=== PATIENT | male | born 1990 | race Caucasian/White ===

== ENCOUNTER 2023-06-30 10:49 | Emergency (ER) | payer BC, SELFPAY ==
[2023-06-30 11:06] VITALS: BP 141/81; PULSE 91; RESP 18; TEMP 36.6; O2SAT 96
--- NOTE | 2023-06-30 11:46 | ED.GENADULT ---
HPI - General Adult General Chief complaint: Ear Stated complaint: left ear pain Source: patient Mode of arrival: ambulatory Limitations: no limitations History of Present Illness HPI narrative: Patient presents for evaluation of left ear pain. Symptom onset yesterday. He has associated tinnitus and muffled hearing. He has had ear infections in the past. He states that his ears ?do not drain well?. He does use an electronic cigarette. No fever, chills, nausea, vomiting, sore throat. He tried taking 600 mg of ibuprofen without considerable improvement thereafter. Related Data Allergies Allergy/AdvReac Type Severity Reaction Status Date / Time No Known Allergies Allergy Unverified 06/10/15 17:10 Review of Systems Review of Systems: CONSTITUTIONAL: Denies fever, chills, or sweats. EYES: Denies visual changes, redness, or discharge. ENT: Reports left sided ear pain, muffled hearing and tinnitus Denies rhinorrhea, congestion, or sore throat CARDIOVASCULAR: Denies chest pain, palpitations, or edema. RESPIRATORY: Denies cough or dyspnea. GASTROINTESTINAL: Denies abdominal pain, nausea, vomiting, or diarrhea. GENITOURINARY: Denies dysuria or hematuria. SKIN: Denies rash or itching. MUSCULOSKELETAL: Denies back pain, joint pain, or myalgia. NEUROLOGIC: Denies headache, numbness, dizziness, or weakness. PSYCHIATRIC: Denies anxiety or depression. PMFSH Past Medical History Medical History Otitis media Surgical History Surgical History No pertinent past surgical history Family History Family History Mother Family history non-contributory Social History Social History Smoking status: Current every day smoker Tobacco type: e-cigarettes/vaping Living arrangements: with family Gender identity (if verbalized by the patient): Female Spiritual care concerns: No Exam Narrative: GENERAL: Well-appearing, well-nourished, and in no acute distress. HEAD: Normocephalic, atraumatic. EYES: PERRLA and EOMI. ENT: Nares clear, no rhinorrhea or epistaxis. Mucous membranes moist. Oropharynx without tonsillar hypertrophy exudate or other lesions. Unable to fully visualize left tympanic membrane due to swelling in the left ear canal and presence of white/yellow exudate. Canal is also erythematous. NECK: Supple. No adenopathy or masses. No carotid bruits or JVD CHEST: Clear to auscultation. No respiratory distress. No wheezes rales or rhonchi HEART: Regular rate and rhythm. No murmur heard. Normal peripheral pulses. ABDOMEN: Soft, nontender, nondistended, normal active bowel sounds. EXTREMITIES: Normal range of motion. No edema. SKIN: Warm, dry, no rash. NEURO: No focal deficits. Alert and oriented x3. PSYCH: Normal mood and affect. Course Course Emergency Course: This is a 33-year-old male who presented for evaluation of left-sided ear pain. Initially was not able to visualize the tympanic membrane due to swelling and exudate. Ear was irrigated and canal still appeared erythematous and edematous. The portion of the tympanic membrane occurred visualize was erythematous and bulging. I was not able to determine whether there was a perforation in the tympanic membrane due to lack of full visualization. Will discharge with Augmentin ofloxacin. Recommend smoking cessation. Follow up with primary provider. Go to the ER for worsening symptoms. Patient in agreement with plan of care Level of Care: Express Care Visit Vital Signs Vital signs: Vital Signs Temperature 36.6 C 06/30/23 11:06 Pulse Rate 91 06/30/23 11:06 Respiratory Rate 18 06/30/23 11:06 Blood Pressure 141/81 H 06/30/23 11:06 Pulse Oximetry 96 06/30/23 11:06 Oxygen Delivery Room Air 06/30/23
== END 2023-06-30 11:48 | disposition home or self-care (01) ==
PROVIDERS: Emergency Provider Nurse Practitioner; PCP Internal Medicine
DX: H60.92 Unspecified otitis externa, left ear (principal); H66.92 Otitis media, unspecified, left ear; F17.290 Nicotine dependence, other tobacco product, uncomplicated
CPT/HCPCS: 99213; G0463

== ENCOUNTER 2024-07-20 17:29 | Emergency (ER) | payer BC, SELFPAY ==
[2024-07-20 17:55] VITALS: BP 123/69; PULSE 80; RESP 16; TEMP 36.7; O2SAT 98
--- NOTE | 2024-07-20 19:06 | ED.WOUNDLAC ---
HPI - Wound/Laceration General Chief Complaint: Wound/Laceration Stated Complaint: Cat Bite/Left Index Finger Source: patient, RN notes reviewed and old records reviewed Mode of arrival: ambulatory Limitations: no limitations History of Present Illness HPI narrative: car bite mid aspect of left index finger Related Data Allergies Allergy/AdvReac Type Severity Reaction Status Date / Time No Known Allergies Allergy Unverified 07/20/24 19:01 Review of Systems Review of Systems: CONSTITUTIONAL: Denies fever, chills, or sweats. CARDIOVASCULAR: Denies chest pain, palpitations, or edema. RESPIRATORY: Denies cough or dyspnea. GASTROINTESTINAL: Denies abdominal pain, nausea, vomiting SKIN: Reports redness and swelling. Denies purulent drainage, vesicles, bullae, numbness, pain beyond proportion MUSCULOSKELETAL: Denies myalgia. NEUROLOGIC: Denies headache, numbness All systems reviewed & are unremarkable except as noted in HPI and below PMFSH Past Medical History Medical History Otitis media Surgical History Surgical History No pertinent past surgical history Family History Family History Mother Family history non-contributory Social History Social History Smoking status: Current every day smoker Tobacco type: e-cigarettes/vaping Living arrangements: with family Gender identity (if verbalized by the patient): Female Spiritual care concerns: No Comments At time of signature, agree with nursing past medical, surgical, social and family history. There is no relevant family history pertinent to the presenting complaint Exam Narrative: GENERAL: Well-appearing, well-nourished, and in no acute distress. HEAD: Normocephalic, atraumatic. EYES: PERRLA and EOMI. ENT: Nares clear, no rhinorrhea or epistaxis. Mucous membranes moist. NECK: Supple. CHEST: Clear to auscultation. No respiratory distress. HEART: Regular rate and rhythm. No murmur heard. Normal peripheral pulses. ABDOMEN: Soft, nontender, nondistended, normal active bowel sounds. EXTREMITIES: Normal range of motion. No edema. SKIN: Warm, dry. Erythema, induration, tenderness, warmth with sharp margins noted (XX). No vesicles, bullae, necrosis, ecchymosis, crepitus noted NEURO: No focal deficits. Alert and oriented x3. Course Course Emergency Course: Patient is aware of diagnosis, understands and agrees to treatment plan. Anticipatory guidance given. Patient agrees to follow-up as directed and is aware of reasons to seek care at the emergency department. Portions of this record may have been created with voice recognition software Level of Care: Express Care Visit Vital Signs Vital signs: Vital Signs Temperature 36.7 C 07/20/24 17:55 Pulse Rate 80 07/20/24 17:55 Respiratory Rate 16 07/20/24 17:55 Blood Pressure 123/69 07/20/24 17:55 Pulse Oximetry 98 07/20/24 17:55 Oxygen Delivery Room Air 07/20/24 17:55 Temperature 36.7 C 07/20/24 17:55 Pulse Rate 80 07/20/24 17:55 Respiratory Rate 16 07/20/24 17:55 Blood Pressure 123/69 07/20/24 17:55 Pulse Oximetry 98 07/20/24 17:55 Oxygen Delivery Room Air 07/20/24 17:55 Reviewed Discharge Plan Discharge Clinical Impression: Cat bite of finger Qualifiers: Encounter type: initial encounter Qualified Code(s): S61.259A - Open bite of unspecified finger without damage to nail, initial encounter Patient Disposition: Home, Self-Care Condition: Stable Instructions: Antibiotic Form Additional Instructions: Cleanse left index finger with liquid Dial soap twice daily apply mupirocin ointment and a Band-Aid to cover wound watch for increasing infection--redness, swelling, drainage Tylenol or ibuprofen for any fever pain follow up with PCP in 7-10 days for a wound check recheck if develop fever, chills, increasing symptom Go to the ER if your symptoms become worse of if ANY new symptoms develop Antibiotic as prescribed complete all doses Monitor for fevers If your symptoms persist, change or worsen significantly before you can contact your personal physician then please, without delay, go to the emergency department for further evaluation. Follow-up with PCP in 7-10 days or sooner if needed Prescriptions: New amoxicillin-pot clavulanate 875-125 mg tablet 1 tablet PO Q12H Qty: 20 0RF Rx Instructions: take probiotic or eat Activa yogurt while on this medication mupirocin 2 % ointment 1 applic topical BID Qty: 22 0RF Follow-up/Referrals: Guanakito,Frank Riojas MD [Primary Care Provider] - Time of Disposition: 19:11 Quality Kite Coma Scale Eyes: Open Verbal: Oriented and Alert Motor: Follows Commands Kite Coma Total Score: 15
== END 2024-07-20 19:15 | disposition home or self-care (01) ==
PROVIDERS: Emergency Provider Registered Nurse; PCP Internal Medicine
DX: S61.251A Open bite of left index finger without damage to nail, initial encounter (principal); W55.01XA Bitten by cat, initial encounter; F17.290 Nicotine dependence, other tobacco product, uncomplicated
CPT/HCPCS: 99213; G0463